=== PATIENT | female | born 1960 | race Caucasian/White ===

== ENCOUNTER 2018-02-28 16:57 | Emergency (ER) | payer BC ==
[2018-02-28 17:02] VITALS: RESP 18
--- NOTE | 2018-02-28 17:49 | ED ---
General Adult HPI - General Chief complaint: Extremity Injury, Lower Stated complaint: RT TOE INJURY Source: patient, RN notes reviewed, old records reviewed Mode of arrival: ambulatory Limitations: no limitations - History of Present Illness Initial comments: 57-year-old female patient presents to ED after sustaining a foot injury. Patient states that she was walking and stubbed her third toe of her right foot against a dresser. Patient had pain, patient had some pain with walking. Patient presented to ED for further evaluation. Patient denies fall, patient denies any other trauma or injury that occurred. Patient denies other complaints. Patient denies chest pain, shortness breath, abdominal pain, nausea vomiting diarrhea, fever or chills, any other symptom. Systemic: Pt denies fatigue, myalgia, fever/chills, rash. Pt denies weakness, night sweats, weight loss. Neuro: Pt denies headache, visual disturbances, syncope or pre-syncope. HEENT: Pt denies ocular discharge or irritation, otalgia, rhinorrhea, pharyngitis or notable lymphadenopathy. Cardiopulmonary: Pt denies chest pain, SOB, heart palpitations, dyspnea on exertion. Abdominal/GI: Pt denies abdominal pain, n/v/d. : Pt denies dysuria, burning w/ urination, frequency/urgency. Denies new onset urinary or bowel incontinence. MSK: Pt denies myalgia, loss of strength or function in extremities. Neuro: Pt denies new onset weakness, paresthesias. - Related Data Home Medications Medication Instructions Recorded Confirmed ALPRAZolam [Xanax] 0.5 mg PO DAILY PRN 11/13/17 11/17/17 Estrogens, Conjugated [Premarin] 0.625 mg PO Q72H 11/13/17 11/17/17 Fluticasone Nasal [place] [Flonase 2 spr EA NOSTRIL DAILY PRN 11/13/17 11/17/17 Nasal [place]] [facility] 1 tab PO DAILY PRN 11/13/17 11/17/17 Ranitidine HCl [Zantac] 150 mg PO BID PRN 11/13/17 11/17/17 Allergies Allergy/AdvReac Type Severity Reaction Status Date / Time acetaminophen [From Tylox] AdvReac Nausea & Verified 02/28/18 17:02 Vomiting adhesive tape AdvReac rash,bliste Verified 02/28/18 17:02 rs erythromycin base AdvReac Nausea & Verified 02/28/18 17:02 Vomiting levofloxacin [From Levaquin] AdvReac Nausea & Verified 02/28/18 17:02 Vomiting metronidazole [From Flagyl] AdvReac GI upset Verified 02/28/18 17:02 nitrofurantoin AdvReac GI upset Verified 02/28/18 17:02 [From Macrodantin] oxycodone [From Tylox] AdvReac Nausea & Verified 02/28/18 17:02 Vomiting Sulfa (Sulfonamide AdvReac GI upset Verified 02/28/18 17:02 Antibiotics) Review of Systems ROS Statement: Those systems with pertinent positive or pertinent negative responses have been documented in the HPI. ROS Other: All systems not noted in ROS Statement are negative. Past Medical History Past Medical History: GERD/Reflux Additional Past Medical History / Comment(s): seasonal allergies History of Any Multi-Drug Resistant Organisms: None Reported Past Surgical History: Back Surgery, Bladder Surgery, Hysterectomy Additional Past Surgical History / Comment(s): bladder suspension, laparoscopy x2 Past Anesthesia/Blood Transfusion Reactions: Postoperative Nausea & Vomiting ( PONV) Past Psychological History: No Psychological Hx Reported Smoking Status: Never smoker Past Alcohol Use History: None Reported Past Drug Use History: None Reported - Past Family History Mother Family Medical History: Deep Vein Thrombosis (DVT) General Exam - General Exam Comments Initial Comments: Constitutional: NAD, AOX3, Pt has pleasant affect. HEENT: NC/AT, trachea midline, neck supple, no lymphadenopathy. Posterior pharynx non erythematous, without exudates. External ears appear normal, without discharge. Mucous membranes moist. Eyes PERRLA, EOM intact. There is no scleral icterus. No pallor noted. Cardiopulmonary: RRR, no murmurs, rubs or gallops, no JVD noted. Lungs CTAB in anterior and posterior cabrera. No peripheral edema. Abdominal exam: Abdomen soft and non-distended. Abdomen non-tender to palpation in all 4 quadrants. Bowel sounds active in LLQ. No hepatosplenomegaly. No ecchymosis Neuro: CN II-XII grossly intact. No nuchal rigidity. MSK: Mild tenderness to distal third toe on right foot. Flexion/extension intact. Capillary refill less than 2 seconds. No posterior calf tenderness bilaterally, homans sign negative bilaterally. Posterior tibialis and radial pulse +2 bilaterally. Sensation intact in upper and lower extremities. Full active ROM in upper and lower extremities, 5/5 strength. Limitations: no limitations Course Vital Signs 02/28/18 17:00 Temperature 97.9 F Pulse Rate 74 Respiratory 18 Rate Blood Pressure 162/88 O2 Sat by Pulse 100 Oximetry Medical Decision Making - Medical Decision Making 57-year-old female patient presents to ED after sustaining a foot injury to the third toe on right foot. Distal toe mildly tender on exam. Full range of motion and sensation intact. Plain films did not display any acute fracture or osseous injury. Patient to be discharged with post op walking boot and ortho referral if pain continues. Patient to return to ED if any signs or symptoms develop. Patient to follow with PCP in 1-2 days. Case discussed with Dr. Felix. Disposition Clinical Impression: Contusion of foot, right Disposition: HOME SELF-CARE Condition: Good Instructions: Foot Contusion (ED) Additional Instructions: Patient to adhere to previously discussed treatment plan and will take medication(s) as directed. Patient to follow up with PCP in 1-2 days. Patient to return to ED if symptoms do not improve. Is patient prescribed a controlled substance at d/c from ED?: No Referrals: Benedicto Laird DO [Primary Care Provider] - 1-2 days Geronimo Cadena PAC [PHYSICIAN SENIOR [employer]BI[employer] APPLICATION DEVELOPER] - 1-2 days Time of Disposition: 19:16
--- NOTE | 2018-02-28 18:29 | XR ---
EXAMINATION TYPE: XR foot complete RT DATE OF EXAM: 02/28/2018 COMPARISON: NONE HISTORY: Pain TECHNIQUE: 3 views FINDINGS: I see no definite fracture nor dislocation. Joint spaces are fairly normal. Metatarsals are intact. There are no erosions. There is an Achilles calcaneal spur. IMPRESSION: Calcaneal spurring. No fracture seen.
[2018-02-28 19:42] VITALS: BP 137/85; PULSE 68; TEMP 98.5
== END 2018-02-28 19:40 | disposition home or self-care (01) ==
LOC: EC 16:57
DX: S90.31XA Contusion of right foot, initial encounter (principal); K21.9 Gastro-esophageal reflux disease without esophagitis; Z88.6 Allergy status to analgesic agent; Z91.048 Other nonmedicinal substance allergy status; Z88.1 Allergy status to other antibiotic agents; Z88.2 Allergy status to sulfonamides; W22.8XXA Striking against or struck by other objects, initial encounter; Y93.01 Activity, walking, marching and hiking
CPT/HCPCS: 99284

== ENCOUNTER → 2020-08-21 | Outpatient (CLI) | payer MEDICAID ==
[2020-08-21 14:54] LABS: Basophils # (A) 0.05 X 10*3/uL (0.00-0.10); Basophils % (A) 0.8 %; Eosinophils # (A) 0.19 X 10*3/uL (0.04-0.35); Eosinophils % (A) 2.9 %; HCT 43.8 % (37.2-46.3); Lymphocytes # (A) 2.99 X 10*3/uL (0.90-5.00); Lymphocytes % (A) 45.2 %; MCH 30.4 pg (27.0-32.0); MCV 95.2 fL (80.0-97.0); Mean Platelet Volume 9.6 fL (9.5-12.2); Monocytes # (A) 0.38 X 10*3/uL (0.20-1.00); Monocytes % (A) 5.7 %; Neutrophils % (A) 45.2 %; Platelet Count 288 X 10*3/uL (140-440); RDW 12.1 % (11.5-14.5); WBC 6.62 X 10*3/uL (4.50-10.00)
[2020-08-21 15:37] LABS: African American GFR (CKD) 79.4 (60.0-200.0); Albumin 4.3 g/dL (3.80-4.90); Albumin/Globulin Ratio 1.54 (1.60-3.17); Anion Gap 7.4 mmol/L (4.00-12.00); BUN/Creat Ratio 16.67 Ratio (12.00-20.00); Calcium 9.2 mg/dL (8.7-10.3); Carbon Dioxide 29.6 mmol/L (21.6-31.8); Chol/HDL Ratio 5.41; Globulin 2.8 g/dL (1.6-3.3); LDL Cholesterol,Calculated 156.2 mg/dL (0.0-131.0); Non-African American GFR(CKD) 68.5 (60.0-200.0); Potassium 4.2 mmol/L (3.5-5.5); Total Bilirubin 0.8 mg/dL (0.3-1.2); Total Protein 7.1 g/dL (6.2-8.2); VLDL Calculation 46.8 mg/dL (5.00-40.00)
== END | disposition home or self-care (01) ==
LOC: LABWHC1 09:23
PROVIDERS: ATTEND Family Medicine
DX: Z00.00 Encounter for general adult medical examination without abnormal findings (principal); E78.5 Hyperlipidemia, unspecified; K58.1 Irritable bowel syndrome with constipation
CPT/HCPCS: 36415; 80053; 80061; 85025; 86038

== ENCOUNTER → 2020-09-15 | Outpatient (CLI) | payer MEDICAID ==
--- NOTE | 2020-09-19 11:10 | MM ---
Reason for exam: screening (asymptomatic). Last mammogram was performed 13 years and 9 months ago. History: Patient is postmenopausal. Family history of breast cancer in aunt. Taking estrogen for 3 years beginning at age 57. Physical Findings: A clinical breast exam by your physician is recommended on an annual basis and results should be correlated with mammographic findings. MG 3D Screening Mammo W/Cad Bilateral CC and MLO view(s) were taken. Prior study comparison: January 29, 2019, mammogram, performed at [facility]. September 15, 2017, mammogram, performed at [facility]. The breast tissue is heterogeneously dense. This may lower the sensitivity of mammography. There is no discrete abnormality. No significant changes when compared with prior studies. ASSESSMENT: Negative, BI-RAD 1 RECOMMENDATION: Routine screening mammogram of both breasts in 1 year.
== END | disposition home or self-care (01) ==
LOC: RADMAMWWP 14:52
PROVIDERS: ATTEND Obstetrics & Gynecology
DX: Z12.31 Encounter for screening mammogram for malignant neoplasm of breast (principal); Z78.0 Asymptomatic menopausal state; Z80.3 Family history of malignant neoplasm of breast; Z79.818 Long term (current) use of other agents affecting estrogen receptors and estrogen levels
CPT/HCPCS: 77063; 77067

== ENCOUNTER → 2023-10-03 | Outpatient (CLI) | payer MEDICARE ==
--- NOTE | 2023-10-07 10:19 | MM ---
Reason for Exam: Screening (asymptomatic). Last mammogram was performed 3 year(s) and 0 month(s) ago. Patient History: Menarche at age 9. First Full-Term at age 23. Hysterectomy at age 41. Postmenopausal. Patient has history of breast feeding. Currently using Unspecified Hormone, beginning at age 57 for 3 years. Maternal aunt had breast cancer. Risk Values: Riddhi 5 year model risk: 2.0%. NCI Lifetime model risk: 7.6%. Prior Study Comparison: 05/15/1994 Screening Mammogram, Unknown. 09/15/2017 Screening Mammogram, [facility]. 01/29/2019 Screening Mammogram, [facility]. 09/15/2020 Bilateral Screening Mammogram, [facility]. Tissue Density: The breasts are almost entirely fatty. Findings: Analyzed By CAD. Right breast: There is no suspicious group of microcalcifications or new suspicious mass. Left breast: There is no suspicious group of microcalcifications or new suspicious mass. Overall Assessment: Negative, BI-RAD 1 Management: Screening Mammogram of both breasts in [address] [facility] will attempt to contact patient to return for supplemental views and ultrasound if indicated. Patient should continue monthly self-breast exams. A clinical breast exam by your physician is recommended on an annual basis. This exam should not preclude additional follow-up of suspicious palpable abnormalities. Note on Riddhi scores and lifetime risk: 1. A Riddhi score greater than 3% is considered moderate risk. If this is the case, consider specialist referral to assess eligibility for a risk reducing agent. 2. If overall lifetime risk for the development of breast cancer is 20% or higher, the patient may qualify for future screening with alternating mammogram and breast MRI. Electronically signed and approved by: Akbar Trevino DO
== END | disposition home or self-care (01) ==
LOC: RADMAMWWP 07:31
PROVIDERS: ATTEND Obstetrics & Gynecology
DX: Z12.31 Encounter for screening mammogram for malignant neoplasm of breast (principal); R92.313 Mammographic fatty tissue density, bilateral breasts; Z78.0 Asymptomatic menopausal state; Z80.3 Family history of malignant neoplasm of breast
CPT/HCPCS: 77063; 77067